=== PATIENT | female | born 1980 | race Caucasian/White ===

== ENCOUNTER 2017-09-01 12:46 | Outpatient (CLI) | payer OTHER ==
[2017-09-01] MEDS ORDERED: ENOXAPARIN40 MG/0.4 SQ (12:56)
[2017-09-01] MEDS ORDERED: PRENATAL 19 TA1 EAC1 PO (12:56)
== END 2017-09-01 13:14 | disposition still patient (30) ==
LOC: NST 12:46
DX: O26.893 Other specified pregnancy related conditions, third trimester (principal); R51 Headache; R07.9 Chest pain, unspecified

== ENCOUNTER → 2017-09-01 | Emergency (ER) | payer OTHER ==
[~2017-09-01] VITALS: Ht 162.6 cm; Wt 70.3 kg
[~2017-09-01] MED LIST: ENOXAPARIN40 MG/0.4 SQ; PRENATAL 19 TA1 EAC1 PO
== END | disposition home or self-care (01) ==
LOC: ER 13:18
DX: O98.513 Other viral diseases complicating pregnancy, third trimester (principal); Z3A.32 32 weeks gestation of pregnancy; B34.9 Viral infection, unspecified; Z34.83 Encounter for supervision of other normal pregnancy, third trimester

== ENCOUNTER 2017-09-17 13:13 | Outpatient (CLI) | payer OTHER | END 2017-09-17 13:55 | disposition home or self-care (01) | LOC: NST 13:13 → EDBD 13:13 → NST 13:55 | DX: Z34.03 Encounter for supervision of normal first pregnancy, third trimester (principal) ==

== ENCOUNTER 2017-10-01 14:14 | Outpatient (CLI) | payer OTHER | END 2017-10-01 15:28 | disposition home or self-care (01) | LOC: NST 14:14 → EDBD 14:14 → NST 15:28 | DX: Z34.83 Encounter for supervision of other normal pregnancy, third trimester (principal) ==

== ENCOUNTER 2017-10-08 15:31 | Outpatient (CLI) | payer OTHER | END 2017-10-08 17:38 | disposition home or self-care (01) | LOC: NST 15:31 | DX: O99.353 Diseases of the nervous system complicating pregnancy, third trimester (principal); Z34.83 Encounter for supervision of other normal pregnancy, third trimester ==

== ENCOUNTER 2017-10-09 15:56 | Inpatient (IN) | payer OTHER ==
[~2017-10-09] VITALS: Ht 162.6 cm; Wt 73.5 kg
== END 2017-10-12 13:44 | disposition home or self-care (01) | DRG 775 ==
LOC: LDR 15:56 → OB/GYN 10-10 15:45
PROC: 4A1HXCZ Monitoring of Products of Conception, Cardiac Rate, External Approach (ICD-10-PCS; 2017-10-09)
PROC: 0KQM0ZZ Repair Perineum Muscle, Open Approach (ICD-10-PCS; principal; 2017-10-10)
PROC: 10E0XZZ Delivery of Products of Conception, External Approach (ICD-10-PCS; 2017-10-10)
PROC: 0W8NXZZ Division of Female Perineum, External Approach (ICD-10-PCS; 2017-10-10)
PROC: 3E033VJ Introduction of Other Hormone into Peripheral Vein, Percutaneous Approach (ICD-10-PCS; 2017-10-10)
PROC: 4A033R1 Measurement of Arterial Saturation, Peripheral, Percutaneous Approach (ICD-10-PCS; 2017-10-10)
DX: O70.1 Second degree perineal laceration during delivery (principal); Z37.0 Single live birth; Z3A.38 38 weeks gestation of pregnancy

== ENCOUNTER 2019-02-09 09:13 | Outpatient (CLI) | payer OTHER | END 2019-02-09 09:28 | disposition home or self-care (01) | LOC: RAD 09:13 | DX: D68.61 Antiphospholipid syndrome (principal); E77.1 Defects in glycoprotein degradation; D51.3 Other dietary vitamin B12 deficiency anemia; E06.3 Autoimmune thyroiditis; E03.8 Other specified hypothyroidism | CPT/HCPCS: 71275 ==

== ENCOUNTER → 2019-02-13 | Outpatient (CLI) | payer OTHER | END | disposition home or self-care (01) | LOC: NUCLEAR 11:00 | DX: D68.61 Antiphospholipid syndrome (principal); E77.1 Defects in glycoprotein degradation; D51.3 Other dietary vitamin B12 deficiency anemia ==

== ENCOUNTER 2022-09-03 13:08 | Inpatient (IN) | payer OTHER ==
[~2022-09-03] VITALS: Ht 162.6 cm; Wt 74.4 kg
[2022-09-12] MEDS ORDERED: ABANEU-SL TABL1 EACH (13:53)
[2022-09-12] MEDS ORDERED: ALBUTEROL2.5 MG/3 M (13:53)
== END 2022-09-14 14:25 | disposition home or self-care (01) | DRG 807 ==
LOC: LDR 09-12 05:23 → OB/GYN 09-12 17:44
PROVIDERS: ADMIT Obstetrics & Gynecology; ATTEND Obstetrics & Gynecology
PROC: 10E0XZZ Delivery of Products of Conception, External Approach (ICD-10-PCS; principal; 2022-09-12)
PROC: 0UQG7ZZ Repair Vagina, Via Natural or Artificial Opening (ICD-10-PCS; 2022-09-12)
PROC: 4A1HXCZ Monitoring of Products of Conception, Cardiac Rate, External Approach (ICD-10-PCS; 2022-09-12)
DX: O71.4 Obstetric high vaginal laceration alone (principal); Z37.0 Single live birth; Z3A.39 39 weeks gestation of pregnancy; Z20.822 Contact with and (suspected) exposure to COVID-19

== ENCOUNTER 2022-09-11 13:41 | Outpatient (CLI) | payer OTHER ==
[2022-09-12] MEDS ORDERED: ALBUTEROL2.5 MG/3 M (13:53)
[2022-09-12] MEDS ORDERED: ABANEU-SL TABL1 EACH (13:53)
== END 2022-09-11 15:27 | disposition home or self-care (01) ==
LOC: NST 13:41
PROVIDERS: ATTEND Obstetrics & Gynecology Gynecology
DX: Z34.83 Encounter for supervision of other normal pregnancy, third trimester (principal)